=== PATIENT | male | born 1995 | race Caucasian/White ===

== ENCOUNTER 2024-12-01 09:22 | Emergency (ER) | payer OTHER, SELFPAY ==
--- OUTSIDE RECORDS SUMMARY | 2024-12-01 09:30 | XMS_ITS | Continuity of Care Document ---
Author Name [facility] Organization [facility] Care Team Providers Care Counselor Marriage And Family Name Role Phone [facility] Unavailable Unavailable Problems Combined list of problems from [facility] and [facility] facilities. It does not include entries that were removed or entered in error. Problem Status Onset Date Problem Type Date of Resolution Comments Source Nondisplaced fracture of base of fifth metacarpal bone, right hand Active Condition [facility] Hyperlipidemia Active Condition [facility] Hypertension Active Condition [facility] Liver enzymes level above reference range Active Condition [facility] Vitamin D deficiency Active Condition [facility] Hypermetropia, bilateral Active Condition [facility] Regular astigmatism, bilateral Active Condition [facility] Diagnosis: ICD-10-CM R74.8 Abnormal levels of other serum enzymes Active Diagnosis [facility] Rojas [facility] Diagnosis: ICD-10-CM Z71.89 Other specified counseling Active Diagnosis [facility] Diagnosis: ICD-10-CM Z71.3 Dietary counseling and surveillance Active Diagnosis [facility] Kellee [facility] Medications Combined list of outpatient medications from [facility] and [facility] facilities.Medications provided include 1) outpatient medications from the last 15 months, and 2) patient-reported medications. Medication Details Route Status Patient Instructions Prescription Expires Prescription Number Last Dispense Date Ordering Provider Order Date Order Qty Source atorvastati n (U/D) 10 MG ORAL TAB TAKE ONE-HALF TABLET BY MOUTH EVERY EVENING Active 01/23/2025 [id number] STANLEY GORDON 2023 45 [facility] n ATORVASTATI N CA 10MG TAB TAKE ONE-HALF TABLET BY MOUTH EVERY EVENING ORAL ACTIVE 01/23/2025 [id number] 4 HANY GORDON 2023 45 [facility] N cholecalcif (VIT D3) 2,000 UNIT ORAL TAB TAKE ONE TABLET BY MOUTH ONCE A DAY FOR VITAMIN D DEFICIEN CY 01/24/2024 [id number] 4 STANLEY GORODN B 2023 100 [facility] n CHOLECALCIF JEROME 50MCG (2,000UNIT) TAB TAKE ONE TABLET BY MOUTH ONCE A DAY FOR VITAMIN D DEFICIEN CY ORAL 01/24/2024 [id number] 4 HANY GORDON E B 2023 100 [facility] N Allergies, Adverse Reactions, Alerts Combined list of allergies from [facility] and [facility] facilities. It does not include entries that were removed or entered in error. Substance Category Reaction Severity Reaction type Status Date Reported Comments Source No Known Allergies Drug allergy (disorder) active 08/07/2019 [facility] [place] Immunizations Combined list of available immunizations from the Department of Defense and Veterans Affairs facilities. Immunization Series Date Given Administered By Site Reaction Lot Number CVX Code Drug Tare Weigher Status Comments Source HPV9 1 2023 LATOYA VILLATORO RIGHT DELTO ID [id number] 165 complet [facility] N TDAP 2023 LATOYA VILLATORO LEFT DELTO ID [id number] 115 complet [facility] N influenza, injectable, quadrivalent, contains preservative 1 2020 [id number] 158 (IDB) complet influenza , injectabl e, quadrival ent, contains preservat hailey [facility] influenza, injectable, quadrivalent, contains preservative 1 2020 [id number] 158 (IDB) complet influenza , injectabl e, quadrival ent, contains preservat hailey [facility] Gambian Encephalitis vaccine for intramuscular administratio n 2 2020 [id number] 134 Unknown (UNK) complet ed [place] Encephali tis vaccine for intramusc ular administr ation DoD SARS-COV-2 (COVID-19) vaccine, mRNA, spike protein, LNP, preservative free, 30 mcg/0.3mL dose 2 2020 [id number] Flypad, Inc (PFR) complet SARS-COV- 2 (COVID-19 ) vaccine, mRNA, spike protein, LNP, preservat hailey free, 30 mcg/0.3mL dose DoD SARS-COV-2 (COVID-19) vaccine, mRNA, spike protein, LNP, preservative free, 30 mcg/0.3mL dose 2 2020 SHERRON MILLER [id number] Pfizer, OANDA (PFR) complet ed SARS-COV- 2 (COVID-19 ) vaccine, mRNA, spike protein, LNP, preservat hailey free, 30 mcg/0.3mL dose DoD measles, mumps and rubella virus vaccine 2 2020 LUAN DIAZ [id number] Merck (MSD) complet ed measles, mumps and rubella virus vaccine DoD anthrax vaccine 2 2020 LUAN DIAZ [id number] SmithKline (SKB) complet ed anthrax vaccine DoD Gambian Encephalitis vaccine for intramuscular administratio n 1 2020 LUAN DIAZ [id number] 134 Valneva (GRACIE) complet ed [place] Encephali tis vaccine for intramusc ular administr ation DoD SARS-COV-2 (COVID-19) vaccine, mRNA, spike protein, LNP, preservative free, 30 mcg/0.3mL dose 1 2020 SHERRON MILLER [id number] 208 Pfizer, OANDA (PFR) complet ed SARS-COV- 2 (COVID-19 ) vaccine, mRNA, spike protein, LNP, preservat hailey free, 30 mcg/0.3mL dose DoD typhoid Vi capsular polysaccharid e vac 2019 [id number] sanofi pasteur complet ed typhoid Vi capsular polysacch aride vac 11/07/19 Given Ambulat ory Pharmac y vaccinia (smallpox) vaccine 2019 [id number] 75 Sanofi Pasteur Incorporated complet ed vaccinia (smallpox ) vaccine 11/07/19 Given Ambulat ory Pharmac y anthrax vaccine 2019 [id number] Emergent Biosolutions complet ed anthrax vaccine 11/07/19 Given Ambulat ory Pharmac y typhoid Vi capsular polysaccharid e vac 2019 [id number] 101 sanofi pasteur complet ed typhoid Vi capsular polysacch aride vac 11/07/19 Given Ambulat ory Pharmac y anthrax vaccine 2019 [id number] Emergent [employer]olutions complet ed anthrax vaccine 11/07/19 Given Ambulat ory Pharmac y vaccinia (smallpox) vaccine 2019 [id number] 75 Sanofi Pasteur Incorporated complet ed vaccinia (smallpox ) vaccine 11/07/19 Given Ambulat ory Pharmac y anthrax vaccine 1 2019 [id number] 24 Emergent [employer] Adel (MIP) complet ed anthrax vaccine DoD vaccinia (smallpox) vaccine 1 2019 [id number] (NICOLETTE) complet ed vaccinia (smallpox ) vaccine DoD typhoid Vi capsular polysaccharid e vaccine 1 2019 [id number] 101 Sanofi Pasteur (PMC) complet ed typhoid Vi capsular polysacch aride vaccine DoD influenza, injectable, quadrivalent 2018 [id number] 158 Seqirus complet ed influenza , injectabl e, quadrival ent 10/09/19 Given Ambulat ory Pharmac y influenza, injectable, quadrivalent 2018 [id number] 158 Seqirus complet ed influenza , injectabl e, quadrival ent 10/09/19 Given Ambulat ory Pharmac y influenza, injectable, quadrivalent, contains preservative 1 2018 [id number] 509 158 Seqirus (SEQ) complet ed influenza , injectabl e, quadrival ent, contains preservat hailey DoD hepatitis A adult vaccine 2018 [id number] 52 GlaxoSmithKli ne complet ed hepatitis A adult vaccine 08/07/19 Given Ambulat ory Pharmac y hepatitis A adult vaccine 2018 Thomas ashraf Arm [id number] 52 GlaxoSmithKli ne complet ed hepatitis A adult vaccine 08/07/19 Given Ambulat ory Pharmac y hepatitis A vaccine, adult dosage 2 2018 COLTON SILVERIO [id number] 52 SmithKline (SKB) complet ed hepatitis A vaccine, adult dosage DoD varicella virus vaccine 2018 [id number] 21 Merck & Company Inc complet ed varicella virus vaccine 02/26/19 Given Ambulat ory Pharmac y varicella virus vaccine 2018 [id number] 21 Merck & Company Inc complet ed varicella virus vaccine 02/26/19 Given Ambulat ory Pharmac y varicella virus vaccine 2 2018 [id number] 21 Merck (MSD) complet ed varicella virus vaccine DoD poliovirus vaccine, inactivated 2018 [id number] sanofi pasteur complet ed polioviru s vaccine, inactivat ed 01/10/19 Given Ambulat ory Pharmac y influenza, injectable, quadrivalent 2018 [id number] 158 Seqirus complet ed influenza , injectabl e, quadrival ent 01/10/19 Given Ambulat ory Pharmac y adenovirus vaccine, live 2018 [id number] 143 Teva Pharmaceutica ls complet ed adenoviru s vaccine, live 01/10/19 Given Ambulat ory Pharmac y tetanus, diphtheria, acellular pertu is 2018 [id number] 115 GlaxoSmithKli ne complet ed tetanus, diphtheri a, acellular pertussis 01/10/19 Given Ambulat ory Pharmac y meningococcal A,C,Y,W-135 (MCV4P) 2018 [id number] 114 sanofi pasteur complet ed meningoco ccal A,C,Y,W-1 35 (MCV4P) 01/10/19 Given Ambulat ory Pharmac y hepatitis A adult vaccine 2018 [id number] 52 GlaxoSmithKli ne complet ed hepatitis A adult vaccine 01/10/19 Given Ambulat ory Pharmac y varicella virus vaccine 2018 [id number] 21 Merck & Company Inc complet ed varicella virus vaccine 01/10/19 Given Ambulat ory Pharmac y influenza, injectable, quadrivalent 2018 [id number] 158 Seqirus complet ed influenza , injectabl e, quadrival ent 01/10/19 Given Ambulat ory Pharmac y adenovirus vaccine, live 2018 [id number] 143 Teva Pharmaceutica ls complet ed adenoviru s vaccine, live 01/10/19 Given Ambulat ory Pharmac y hepatitis A adult vaccine 2018 [id number] 52 GlaxoSmithKli ne complet ed hepatitis A adult vaccine 01/10/19 Given Ambulat ory Pharmac y varicella virus vaccine 2018 [id number] 21 Merck & Company Inc complet ed varicella virus vaccine 01/10/19 Given Ambulat ory Pharmac y poliovirus vaccine, inactivated 2018 [id number] 10 sanofi pasteur complet ed polioviru s vaccine, inactivat ed 01/10/19 Given Ambulat ory Pharmac y tetanus, diphtheria, acellular pertu is 2018 [id number] 115 [employer] complet ed tetanus, diphtheri a, acellular pertussis 01/10/19 Given Ambulat ory Pharmac y meningococcal A,C,Y,W-135 (MCV4P) 2018 [id number] 114 sanofi pasteur complet ed meningoco ccal A,C,Y,W-1 35 (MCV4P) 01/10/19 Given Ambulat ory Pharmac y measles, mumps and rubella virus vaccine 1 2018 UNK 03 Unknown (UNK) Not Given measles, mumps and rubella virus vaccine DoD poliovirus vaccine, inactivated 1 2018 [id number] 10 Sanofi Pasteur (PMC) complet ed polioviru s vaccine, inactivat ed DoD varicella virus vaccine 1 2018 [id number] 21 Merck (MSD) complet ed varicella virus vaccine DoD hepatitis B vaccine, adult dosage 1 2018 UNK 43 Unknown (UNK) Not Given hepatitis B vaccine, adult dosage DoD hepatitis A vaccine, adult dosage 1 2018 [id number] 52 [employer] Processing[employer] (SKB) complet ed hepatitis A vaccine, adult dosage DoD meningococcal polysaccharid e (groups A, C, Y and W-135) diphtheria toxoid conjugate vaccine (MCV4P) 1 2018 [id number] 114 Sanofi Pasteur (PMC) complet ed meningoco ccal polysacch aride (groups A, C, Y and W-135) diphtheri a toxoid conjugate vaccine (MCV4P) DoD tetanus toxoid, reduced diphtheria toxoid, and acellular pertu is vaccine, adsorbed 1 2018 [id number] 115 [employer]s (SKB) complet ed tetanus toxoid, reduced diphtheri a toxoid, and acellular pertussis vaccine, adsorbed DoD Adenovirus, type 4 and type 7, live, oral 1 2018 [id number] 143 Evri (BRR) complet ed Adenoviru s, type 4 and type 7, live, oral DoD influenza, injectable, quadrivalent, contains preservative 1 2018 [id number] 158 Seqirus (SEQ) comple t ed influenza , injectabl e, quadrival ent, contains preservat hailey DoD Results Combined list of recent chemistry, hematology and other laboratory results from Department of Defense and Veterans Affairs, ranging from 15 months to all on record, depending upon the facility. Order Name Results Value Reference Range Date Interpretation Specimen Comments Source HIV COMBO FOURTH GENERATIO N (STL) HIV 1+2 AB+HIV1 P24 AG [PRESENCE] IN SERUM OR PLASMA BY IMMUNOASSA Y Nonreact hailey 10/24 Specimen Type: SERUM No comment entered. Ordering Provider: STANLEY GORDON Report Released Date/Time: Oct 24, 2023 09:44 AM Reporting Lab: [facility] [address] [place] [phone] Performing Lab: [facility] [address] [place] [phone] [facility] HEP C Ab HCV Ab ([facility]) HEPATITIS C VIRUS AB [PRESENCE] IN SERUM Nonreact hailey 10/24 Specimen Type: SERUM No comment entered. Ordering Provider: STANLEY GORDON Report Released Date/Time: Oct 24, 2023 09:44 AM Reporting Lab: [facility] [id number] Performing Lab: [facility] [address] [place] [phone] [facility] COMPREHEN SIVLibby METABOLIC PANEL CREATININE [MASS/VOLU ME] IN SERUM OR PLASMA 0.98 mg/dL 0.70 - 1.30 10/24 Specimen Type: PLASMA Comment: No hemolysis noted. Ordering Provider: STANLEY GORDON Report Released Date/Time: Oct 24, 2023 09:44 AM Reporting Lab: [facility]1 [facility] [id number] Performing Lab: [facility]1 [facility] [id number] [place] [address] DIVISION COMPREHEN SIVLibby METABOLIC PANEL UREA NITROGEN [MASS/VOLU ME] IN SERUM OR PLASMA 17.9 mg/dL 9.0 - 25.0 10/24 Specimen Type: PLASMA Comment: No hemolysis noted. Ordering Provider: STANLEY GORDON Report Released Date/Time: Oct 24, 2023 09:44 AM Reporting Lab: [facility] [place] [address] Performing Lab: [facility] DIVISION COMPREHEN SIVE METABOLIC PANEL GLUCOSE [MASS/VOLU ME] IN SERUM OR PLASMA 84 mg/dL 72 - 99 10/24 Specimen Type: PLASMA Comment: No hemolysis noted. Ordering Provider: STANLEY GORDON Report Released Date/Time: Oct 24, 2023 09:44 AM Reporting Lab: [facility] [place] [address] Performing Lab: [facility] DIVISION COMPREHEN SIVE METABOLIC PANEL SODIUM [MOLES/VOL UME] IN SERUM OR PLASMA 139 meq/L 136 - 145 10/24 Specimen Type: PLASMA Comment: No hemolysis noted. Ordering Provider: STANLEY GORDON Report Released Date/Time: Oct 24, 2023 09:44 AM Reporting Lab: [facility] [place] [address] Performing Lab: [facility] DIVISION COMPREHEN SIVE METABOLIC PANEL POTASSIUM [MOLES/VOL UME] IN SERUM OR PLASMA 4.4 meq/L 3.5 - 5.0 10/24 Specimen Type: PLASMA Comment: No hemolysis noted. Ordering Provider: STANLEY GORDON Report Released Date/Time: Oct 24, 2023 09:44 AM Reporting Lab: [facility] [place] [address] Performing Lab: [facility] DIVISION COMPREHEN SIVE METABOLIC PANEL CHLORIDE [MOLES/VOL UME] IN SERUM OR PLASMA 107 meq/L 98 - 107 10/24 Specimen Type: PLASMA Comment: No hemolysis noted. Ordering Provider: STANLEY GORDON Report Released Date/Time: Oct 24, 2023 09:44 AM Reporting Lab: [facility] [place] [address] Performing Lab: [facility] DIVISION COMPREHEN SIVE METABOLIC PANEL CARBON DIOXIDE, TOTAL [MOLES/VOL UME] IN SERUM OR PLASMA 22 meq/L 22 - 31 10/24 Specimen Type: PLASMA Comment: No hemolysis noted. Ordering Provider: STANLEY GORDON Report Released Date/Time: Oct 24, 2023 09:44 AM Reporting Lab: [facility] [place] [address] Performing Lab: [facility] DIVISION COMPREHEN SIVE METABOLIC PANEL CALCIUM [MASS/VOLU ME] IN SERUM OR PLASMA 9.3 mg/dL 8.4 - 10.4 10/24 Specimen Type: PLASMA Comment: No hemolysis noted. Ordering Provider: STANLEY GORDON Report Released Date/Time: Oct 24, 2023 09:44 AM Reporting Lab: [facility] [place] [address] Performing Lab: [facility] DIVISION COMPREHEN SIVE METABOLIC PANEL PROTEIN [MASS/VOLU ME] IN SERUM OR PLASMA 7.8 g/dL 6.0 - 8.6 10/24 Specimen Type: PLASMA Comment: No hemolysis noted. Ordering Provider: STANLEY GORDON Report Released Date/Time: Oct 24, 2023 09:44 AM Reporting Lab: [facility] [place] [address] Performing Lab: [facility] [place] [facility] DIV[facility] COMPREHEN SIVE METABOLIC PANEL ALBUMIN [MASS/VOLU ME] IN SERUM OR PLASMA 4.5 g/dL 3.4 - 5.0 10/24 Specimen Type: PLASMA Comment: No hemolysis noted. Ordering Provider: STANLEY GORDON Report Released Date/Time: Oct 24, 2023 09:44 AM Reporting Lab: [facility] [place] [address] Performing Lab: [facility] DIVISION COMPREHEN SIVE METABOLIC PANEL BILIRUBIN. TOTAL [MASS/VOLU ME] IN SERUM OR PLASMA 0.5 mg/dL 0.2 - 1.2 10/24 Specimen Type: PLASMA Comment: No hemolysis noted. Ordering Provider: STANLEY GORDON Report Released Date/Time: Oct 24, 2023 09:44 AM Reporting Lab: [facility] [place] [address] Performing Lab: [facility] DIVISION COMPREHEN SIVE METABOLIC PANEL ALKALINE PHOSPHATAS E [ENZYMATIC ACTIVITY/V OLUME] IN SERUM OR PLASMA 59 U/L 40 - 150 10/24 Specimen Type: PLASMA Comment: No hemolysis noted. Ordering Provider: STANLEY GORDON Report Released Date/Time: Oct 24, 2023 09:44 AM Reporting Lab: [facility] [place] [address] Performing Lab: [facility] DIVISION COMPREHEN SIVE METABOLIC PANEL ASPARTATE AMINOTRANS FERASE [ENZYMATIC ACTIVITY/V OLUME] IN SERUM OR PLASMA 35 U/L 5 - 34 10/24 H Specimen Type: PLASMA Comment: No hemolysis noted. Ordering Provider: STANLEY GORDON Report Released Date/Time: Oct 24, 2023 09:44 AM Reporting Lab: [facility] [place] [address] Performing Lab: [facility] DIVISION COMPREHEN SIVE METABOLIC PANEL ALANINE AMINOTRANS FERASE [ENZYMATIC ACTIVITY/V OLUME] IN SERUM OR PLASMA 68 U/L 8 - 40 10/24 H Specimen Type: PLASMA Comment: No hemolysis noted. Ordering Provider: STANLEY GORDON Report Released Date/Time: Oct 24, 2023 09:44 AM Reporting Lab: [facility] [place] [address] Performing Lab: [facility] DIVISION COMPREHEN SIVE METABOLIC PANEL GLOMERULAR FILTRATION RATE/1.73 SQ M.PREDICTE D [VOLUME RATE/AREA] IN SERUM, PLASMA OR BLOOD BY CREATININE -BASED FORMULA (CKD-EPI 2020) 109.06 60 10/24 Specimen Type: PLASMA Comment: No hemolysis noted. Ordering Provider: STANLEY GORDON Report Released Date/Time: Oct 24, 2023 09:44 AM Reporting Lab: [facility] [place] [address] Performing Lab: [facility] DIVISION CBC LEUKOCYTES [#/VOLUME] IN BLOOD BY AUTOMATED COUNT 6.8 10*3/uL 3.6 - 11.2 10/24 Specimen Type: BLOOD No comment entered. Ordering Provider: STANLEY GORDON Report Released Date/Time: Oct 24, 2023 09:44 AM Reporting Lab: [facility] [place] [address] Performing Lab: [facility] DIVISION CBC ERYTHROCYT ES [#/VOLUME] IN BLOOD BY AUTOMATED COUNT 5.28 10*6/uL 4.10 - 5.70 01/02 /2024 Specimen Type: BLOOD No comment entered. Ordering Provider: STANLEY GORDON Report Released Date/Time: Oct 24, 2023 09:44 AM Reporting Lab: [facility] [place] [address] Performing Lab: [facility] CBC HEMOGLOBIN [MASS/VOLU ME] IN BLOOD 16.3 g/dL 13.1 - 16.8 10/24 Specimen Type: BLOOD No comment entered. Ordering Provider: STANLEY GORDON Report Released Date/Time: Oct 24, 2023 09:44 AM Reporting Lab: [facility] [place] [address] Performing Lab: [facility] CBC HEMATOCRIT [VOLUME FRACTION] OF BLOOD 46.0 38.2 - 48.4 10/24 Specimen Type: BLOOD No comment entered. Ordering Provider: STANLEY GORDON Report Released Date/Time: Oct 24, 2023 09:44 AM Reporting Lab: [facility] [place] [address] Performing Lab: [facility] DIVISION CBC MCV [ENTITIC VOLUME] BY AUTOMATED COUNT 87.1 fL 80.0 - 100.0 10/24 Specimen Type: BLOOD No comment entered. Ordering Provider: STANLEY GORDON Report Released Date/Time: Oct 24, 2023 09:44 AM Reporting Lab: [facility] [place] [address] Performing Lab: [facility] DIVISION CBC MCH [ENTITIC MASS] BY AUTOMATED COUNT 30.9 pg 27.0 - 34.0 10/24 Specimen Type: BLOOD No comment entered. Ordering Provider: STANLEY GORDON Report Released Date/Time: Oct 24, 2023 09:44 AM Reporting Lab: [facility] [place] [address] Performing Lab: [facility] DIVISION CBC MCHC [MASS/VOLU ME] BY AUTOMATED COUNT 35.4 g/dL 33.0 - 36.0 10/24 Specimen Type: BLOOD No comment entered. Ordering Provider: STANLEY GORDON Report Released Date/Time: Oct 24, 2023 09:44 AM Reporting Lab: [facility] [place] [address] Performing Lab: [facility] DIVISION CBC PLATELETS [#/VOLUME] IN BLOOD BY AUTOMATED COUNT 238 10*3/uL 150 - 400 10/24 Specimen Type: BLOOD No comment entered. Ordering Provider: STANLEY GORDON Report Released Date/Time: Oct 24, 2023 09:44 AM Reporting Lab: [facility] [place] [address] Performing Lab: [facility] DIVISION CBC PLATELET MEAN VOLUME [ENTITIC VOLUME] IN BLOOD BY AUTOMATED COUNT 9.8 fL 7.5 - 11.2 10/24 Specimen Type: BLOOD No comment entered. Ordering Provider: STANLEY GORDON Report Released Date/Time: Oct 24, 2023 09:44 AM Reporting Lab: [facility] [place] [address] Performing Lab: [facility] DIVISION CBC ERYTHROCYT E DISTRIBUTI ON WIDTH [RATIO] BY AUTOMATED COUNT 12.6 11.8 - 15.1 10/24 Specimen Type: BLOOD No comment entered. Ordering Provider: STANLEY GORDON Report Released Date/Time: Oct 24, 2023 09:44 AM Reporting Lab: [facility] [place] [address] Performing Lab: [facility] DIVISION CBC LYMPHOCYTE S/100 LEUKOCYTES IN BLOOD BY AUTOMATED COUNT 25 10/24 Specimen Type: BLOOD No comment entered. Ordering Provider: STANLEY GORDON Report Released Date/Time: Oct 24, 2023 09:44 AM Reporting Lab: [facility] [place] [address] Performing Lab: [facility] DIVISION CBC MONOCYTES/ 100 LEUKOCYTES IN BLOOD BY AUTOMATED COUNT 6 10/24 Specimen Type: BLOOD No comment entered. Ordering Provider: STANLEY GORDON Report Released Date/Time: Oct 24, 2023 09:44 AM Reporting Lab: [facility] [place] [address] Performing Lab: [facility]1 [facility] [id number] [place] [address] DIVISION CBC NEUTROPHIL S/100 LEUKOCYTES IN BLOOD BY AUTOMATED COUNT 63 10/24 Specimen Type: BLOOD No comment entered. Ordering Provider: STANLEY GORDON Report Released Date/Time: Oct 24, 2023 09:44 AM Reporting Lab: [facility] [place] [address] Performing Lab: [facility] DIVISION CBC EOSINOPHIL S/100 LEUKOCYTES IN BLOOD BY AUTOMATED COUNT 5 10/24 Specimen Type: BLOOD No comment entered. Ordering Provider: STANLEY GORDON Report Released Date/Time: Oct 24, 2023 09:44 AM Reporting Lab: [facility] [place] [address] Performing Lab: [facility] DIVISION CBC BASOPHILS/ 100 LEUKOCYTES IN BLOOD BY AUTOMATED COUNT 1 10/24 Specimen Type: BLOOD No comment entered. Ordering Provider: STANLEY GORDON Report Released Date/Time: Oct 24, 2023 09:44 AM Reporting Lab: [facility] [place] [address] Performing Lab: [facility] DIVISION CBC LYMPHOCYTE S [#/VOLUME] IN BLOOD BY AUTOMATED COUNT 1.70 10*3/uL 0.77 - 4.50 10/24 Specimen Type: BLOOD No comment entered. Ordering Provider: STANLEY GORDON Report Released Date/Time: Oct 24, 2023 09:44 AM Reporting Lab: [facility] [place] [address] Performing Lab: [facility] DIVISION CBC MONOCYTES [#/VOLUME] IN BLOOD BY AUTOMATED COUNT 0.42 10*3/uL 0.19 - 0.80 10/24 Specimen Type: BLOOD No comment entered. Ordering Provider: STANLEY GORDON Report Released Date/Time: Oct 24, 2023 09:44 AM Reporting Lab: [facility] [place] [address] Performing Lab: [facility] DIVISION CBC NEUTROPHIL S [#/VOLUME] IN BLOOD BY AUTOMATED COUNT 4.28 10*3/uL 2.10 - 8.00 10/24 Specimen Type: BLOOD No comment entered. Ordering Provider: STANLEY GORDON Report Released Date/Time: Oct 24, 2023 09:44 AM Reporting Lab: [facility] [place] [address] Performing Lab: [facility] CBC EOSINOPHIL S [#/VOLUME] IN BLOOD BY AUTOMATED COUNT 0.34 10*3/uL 0.00 - 0.60 10/24 Specimen Type: BLOOD No comment entered. Ordering Provider: STANLEY GORDON Report Released Date/Time: Oct 24, 2023 09:44 AM Reporting Lab: [facility] [place] [address] Performing Lab: [facility] DIVISION CBC BASOPHILS [#/VOLUME] IN BLOOD BY AUTOMATED COUNT 0.07 10*3/uL 0.00 - 0.20 10/24 Specimen Type: BLOOD No comment entered. Ordering Provider: STANLEY GORDON Report Released Date/Time: Oct 24, 2023 09:44 AM Reporting Lab: [facility] [place] [address] Performing Lab: [facility] LIPID PANEL (STL) CHOLESTERO L [MASS/VOLU ME] IN SERUM OR PLASMA 255 mg/dL 0 - 200 10/24 H Specimen Type: PLASMA Comment: No hemolysis noted. Ordering Provider: STANLEY GORDON Report Released Date/Time: Oct 24, 2023 09:44 AM Reporting Lab: [facility] [place] [address] Performing Lab: [facility] DIVISION LIPID PANEL (STL) TRIGLYCERI DE [MASS/VOLU ME] IN SERUM OR PLASMA 146 mg/dL 0 - 150 10/24 Specimen Type: PLASMA Comment: No hemolysis noted. Ordering Provider: STANLEY GORDON Report Released Date/Time: Oct 24, 2023 09:44 AM Reporting Lab: [facility] [place] [address] Performing Lab: [facility] LIPID PANEL (STL) CHOLESTERO L IN LDL [MASS/VOLU ME] IN SERUM OR PLASMA BY CALCULATIO N 171 mg/dL 10/24 Specimen Type: PLASMA Comment: No hemolysis noted. Ordering Provider: STANLEY GORDON Report Released Date/Time: Oct 24, 2023 09:44 AM Reporting Lab: [facility] [place] [address] Performing Lab: [facility] LIPID PANEL (STL) CHOLESTERO L IN HDL [MASS/VOLU ME] IN SERUM OR PLASMA 55 mg/dL 40 10/24 Specimen Type: PLASMA Comment: No hemolysis noted. Ordering Provider: STANLEY GORDON Report Released Date/Time: Oct 24, 2023 09:44 AM Reporting Lab: [facility] [place] [address] Performing Lab: [facility] DIVISION HGA1C HEMOGLOBIN A1C/HEMOGL OBIN.TOTAL IN BLOOD 5.4 4.0 - 6.0 10/24 Specimen Type: BLOOD No comment entered. Ordering Provider: STANLEY GORDON Report Released Date/Time: Oct 24, 2023 09:44 AM Reporting Lab: [facility] [place] [address] Performing Lab: [facility] DIVISION VITAMIN D, 25-HYDROX Y 25-HYDROXY VITAMIN D3 [MASS/VOLU ME] IN SERUM OR PLASMA 19.4 ng/mL 30 - 96 10/24 L Specimen Type: SERUM No comment entered. Ordering Provider: STANLEY GORDON Report Released Date/Time: Oct 24, 2023 09:46 AM Reporting Lab: [facility]1 [facility] [address] Performing Lab: [facility] [address] [facility] [place] Vital Signs Combined list of inpatient and outpatient Vital Signs from Department of Defense and Veterans Affairs, ranging from 12 months to all on record, depending upon the facility. Vital Sign Value Date Comments Source Systolic Blood Pressure 123 mm[Hg] 04/26/20 22 16:06:[address] [place] [address] Antonio Oconnell Diastolic Blood Pressure 84 mm[Hg] 022 16:06:[address] [place] [address] Antonio Oconnell Mean Arterial Pressure, Calc 97 mm[Hg] 04/26/2022 16:06:[address] [place] [address] Antonio Oconnell Peripheral Pulse Rate 80 bpm 04/26/2022 16:06:[address] [place] [address] Antonio Oconnell Respiratory Rate 14 br/min 04/26/2022 16:06:[address] [place] [address] Antonio Oconnell Temperature Temporal Artery 36.7 Lizzy 04/26/2022 16:06:[address] [place] [address] Antonio Oconnell BP Site Left arm 04/26/2022 16:06:[address] [place] [address] Antonio Oconnell Blood Pressure Manual Automatic 04/26/2022 16:06:[address] [place] [address] Antonio Oconnell SYSTOLIC BLOOD PRESSURE 121 01/23/20 24 10:17:[address] [facility] DIASTOLIC BLOOD PRESSURE 70 024 10:17:[address] [facility] PULSE OXIMETRY 96 01/23/2024 10:17:[address] [facility] WEIGHT 217.7 01/23/2024 10:17:[address] [facility] BMI 31 kg/m2 01/23/2024 10:17:34 [facility] PAIN 0 01/23/2024 10:17:[address] [facility] TEMPERATURE 98.3 01/23/2024 10:17:[address] [facility] PULSE 86 01/23/2024 10:17:34 [facility] RESPIRATION 18 01/23/2024 10:17:[address] [facility] Encounters Combined list of: 1) Encounters from Department of [facility] facilities going backup to the last 18 months, not all [place] inpatient encounters are included; 2) Encounters from the Department of [facility] facilities going backup to 280 months. Location Location Details Encounter Type Encounter Number Reason For Visit Attending Provider ADM Date DC Date Status Disposition Source [place] OUTPATIENT [id number] Notes Entered by: SACHIN JACOBO 08 Jan 2019 0715 ------- ------- ------- ------- -- Optomet ry Hei ARMIDA Solorio V 01/08 Released w/o Limitations [place] OUTPATIENT [id number] Notes Entered by: MARIA G AMAYA 08 Jan 2019 0759 ------- ------- ------- ------- -- [id number] DAY 1 039 ANNABELLE HEARD 01/08 Released w/o Limitations [place] OUTPATIENT [id number] Notes Entered by: Anjali SCHRADER 09 Jan 2019 1208 ------- ------- ------- ------- -- 039 CALLY SCHRADER 01/09 Released w/o Limitations [place] OUTPATIENT [id number] Notes Entered by: MARIA G AMAYA 10 Jan 2019 0517 ------- ------- ------- ------- -- [id number] DAY 3 039 KEISHA MAYO 01/10 Released w/o Limitations [place] OUTPATIENT [id number] Notes Entered by: CHIQUITA MELÉNDEZ 26 Feb 2019 0652 ------- ------- ------- ------- -- C CO 3-10 HERLINDA MONACO 02/26 Released w/o Limitations [place] [facility] [place]([facility] [place]) OUTPATIENT [id number] Notes Entered by: Ryan PRICE 07 Aug 2019 1012 ------- ------- ------- ------- -- INPROCE SSING/I MADHURI LAINEZ 08/07 Released w/o Limitations [facility] [place]([facility] [place]) [facility] [place] OUTPATIENT [id number] Notes Entered by: CLIF VELA 05 Nov 2019 1358 ------- ------- ------- ------- -- annual CLIF VELA JR 11/05 Released w/o Limitations [facility] [place]([facility] ) [facility] [place]([facility]) OUTPATIENT [id number] ree [id number] MARJAN WEINER 12/11 Released w/o Limitations [facility] [place]([facility]) [facility] [place]([facility]) OUTPATIENT [id number] LARA ORTIZ [phone] ANETTE PHAN 11/30 Released w/o Limitations [facility] [place]([facility] ) [facility] [place](Opto metry [facility]) OUTPATIENT [id number] REE [id number] DIDIERLEAERIN 01/08 Released w/o Limitations [facility] [place](Op tometry [facility]) [facility] [place](Epid emiology) TELE CONSULT [id number] Notes Entered by: IVONNE LANDERS 14 Jan 2021 1210 ------- ------- ------- ------- -- Close Contact to a positiv e COVID-1 9 Patient DANIEL SAAVEDRA 01/14 [facility] [place](Ep idemiol ogy) [facility] [place]) OUTPATIENT [id number] Notes Entered by: DEVENDRA HINDS 28 Jan 2021 1229 ------- ------- ------- ------- -- Covid Vaccine TERESA SÁNCHEZ 01/28 Released w/o Limitations [facility] [place]([facility]) [facility] [place]([facility]) OUTPATIENT [id number] Notes Entered by: Olaf HARMON 05 Apr 2021 0852 ------- ------- ------- ------- -- OK RAJPUT 04/05 Released w/o Limitations [facility] [place]([facility]) [facility] [place]([facility]) OUTPATIENT [id number] Notes Entered by: ZACH HOUSER 10 Apr 2021 1031 ------- ------- ------- ------- -- 2nd Covid Vaccine PACHALE SOLORZANO 04/10 Released w/o Limitations [facility] [place]([facility]) [facility] [place]( [facility]) TELE CONSULT [id number] Notes Entered by: OLIVER CASEY 08 Jun 2021 1441 ------- ------- ------- ------- -- RT wrist pain BONNIE SPRAGUE 06/08 [facility] -[facility]([place] [facility]) [facility] [place]( [facility]) TELE CONSULT [id number] Notes Entered by: OLIVER CASEY 10 Jun 2021 1907 ------- ------- ------- ------- -- BNONIE Grace 06/10 [facility]ANN [facility]RELL[facility] -[facility]([place] [facility]) [facility] [place]( Orthopedi c Clinic [facility]) OUTPATIENT [id number] Unspeci fied fractur e of right wrist and hand, subsequ ent encount er for fractur TANK DOS SANTOS 06/20 Released with Work/Duty Limitations [facility] -[facility](Ort hopedic Clinic [facility]) [facility]ANN ESTRELLAGOOD-[facility] [place]( Orthopedi c Clinic [facility]) OUTPATIENT [id number] follow up TANK DOS SANTOS 07/20 Released with Work/Duty Limitations [facility] -[facility](Ort hopedic Clinic [facility]) [facility]ANN [facility]LL[place]OD-[facility] [place]( Physical Therapy [facility]) TELE CONSULT [id number] Notes Entered by: LEANN PUTNAM 26 Jul 2021 1604 ------- ------- ------- ------- -- attempt ed to schedul e appoint met KRUPA MARSHALL 07/26 [facility]ANN CARTERON[facility]) [facility]AEANN ESTRELLAGOOD-[facility] [place]( [place] [address]) OUTPATIENT [id number] Notes Entered by: TAMMY SZYMANSKI 16 Aug 2021 1425 ------- ------- ------- ------- -- right hand TAMMY SZYMANSKI 08/16 Released w/o Limitations [facility] -[facility]([place] [address]) RAEANN ESTRELLAGOOD-[facility] [place]( [employer] [facility]) OUTPATIENT [id number] Notes Entered by: TAMMY SZYMANSKI 17 Aug 2021 1510 ------- ------- ------- ------- -- right hand TAMMY SZYMANSKI 08/17 Released w/o Limitations [facility] -[facility]([place] [facility]) [facility]ERT[facility]( [employer] [facility]) OUTPATIENT [id number] Notes Entered by: TAMMY SZYMANSKI 19 Aug 2021 1610 ------- ------- ------- ------- -- right hand TAMMY SZYMANSKI 08/19 Released w/o Limitations [facility] -[facility]([place] [facility]) [facility]OD[facility] [place]( [employer] [facility]) OUTPATIENT [id number] Notes Entered by: TAMMY SZYMANSKI 23 Aug 2021 1320 ------- ------- ------- ------- -- right hand TAMMY SZYMANSKI 08/23 Released w/o Limitations [facility] [facility]([place] [facility]) [facility] [place]( [employer] [facility]) OUTPATIENT [id number] Notes Entered by: TAMMY SZYMANSKI 09 Sep 2021 1648 ------- ------- ------- ------- -- right hand TAMMY SZYMANSKI 09/09 Released w/o Limitations [facility] [place] [facility]([place] [facility]) [facility] [place]( [employer] [facility]) OUTPATIENT [id number] Notes Entered by: TAMMY SZYMANSKI 14 Sep 2021 1552 ------- ------- ------- ------- -- right hand TAMMY SZYMANSKI 09/14 Released w/o Limitations [facility] [place] [facility]([place] [facility]) [facility] [place]( [employer] [facility]) OUTPATIENT [id number] Notes Entered by: TAMMY SZYMANSKI 20 Sep 2021 1105 ------- ------- ------- ------- -- Right hand TAMMY SZYMANSKI 09/20 Released w/o Limitations [facility] [place] [facility]([place] [facility]) [facility] [place]( [employer] [facility]) OUTPATIENT [id number] Notes Entered by: TAMMY SZYMANSKI 24 Sep 2021 0954 ------- ------- ------- ------- -- Right hand pain TAMMY SZYMANSKI 09/24 Released w/o Limitations [facility] [place] [facility]([place] [facility]) [facility]PATIENT [id number] Notes Entered by: TAMMY SZYMANSKI 05 Oct 2021 1524 ------- ------- ------- ------- -- right hand pain TAMMY SZYMANSKI 10/05 Released w/o Limitations [facility] [place] [facility]) [facility] [place]( [facility] OUTPATIENT [id number] Notes Entered by: TAMMY SZYMANSKI 07 Oct 2021 1430 ------- ------- ------- ------- -- Right hand pain TAMMY SZYMANSKI 10/07 Released w/o Limitations [facility] [place] [facility]) [facility] [place]( [facility] OUTPATIENT [id number] Notes Entered by: TAMMY SZYMANSKI 13 Oct 2021 0846 ------- ------- ------- ------- -- right hand pain TAMMY SZYMANSKI 10/12 Released w/o Limitations [facility] [place] [facility]) [facility] [place] [place]( [facility] OUTPATIENT [id number] Notes Entered by: TAMMY SZYMANSKI 14 Oct 2021 1421 ------- ------- ------- ------- -- Right hand pain TAMMY SZYMANSKI 10/14 Released w/o Limitations [facility] [place] [facility]) [facility] [place]( [facility] OUTPATIENT [id number] Notes Entered by: TAMMY SZYMANSKI 20 Oct 2021 1147 ------- ------- ------- ------- -- Right hand pain TAMMY SZYMANSKI 10/20 Released w/o Limitations [facility] [facility]) [facility]) OUTPATIENT [id number] Annual. 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 STANLEY Meza 10/24 [facility] HC PRO PHONE CALL 5-10 MIN [id number] Diagnos is: ICD-10- CM Z71.89 Other 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 Procedure Procedure Type Code Date Perfomer Comments Sourc e No data available for this section Ambulatory P harmacy No data is provided for this section because a [facility] internal system error occurred when retrieving data. A future request for this document may succe fully include data for this section if the system i ue has been resolved. [facility] Social History Combined list of available smoking, tobacco, and other social history from Department of Defense and Veterans Affairs facilities. Social History Type Response Date Comment Sourc e Tobacco smoking status NHIS VA-TOBACCO FORMER USER 10/24/2023 [facility] History of tobacco use VA-TOBACCO QUIT 5 TO < 15 YRS 10/24/2023 [facility] Male 07/19/2020 Ambulatory Pha rmacy Sexual Orientation Ambula tory Pharmacy Gender identity Ambulator y Pharmacy This section is an empty social history section. [facility] Assessment and Plan Combined list of future care activities from Department of Defense and Veterans Affairs facilities (e.g., assessment and plan notes, appointments, orders, and referrals). Additional future care activities may be listed in the Plan of Care section. Result Assessment and Plan Date Source Assessment and Plan Extracted from:Title : Office Clinic Note Author: LAQUITA VILLEGAS, Date: 04/26/22 Physical examination Patient has no complaints. Medical record reviewed and ETS physical completed, Patient has myopia corrected with lens, and mild pes planus ( asymptomatic). No disqualification condition found on exam. 12/01/[address] [place] [address] Antonio Oconnell Functional Status Combined list of recent functional and cognitive assessments recorded at Department of Defense and Veterans Affairs (VA).VA Functional Ragland Measurement (FIM) Scale: 1 = Total Assistance (Subject = 0% +), 2 = Maximal Assistance (Subject = 25% +), 3 = Moderate Assistance (Subject = 50% +), 4 = Minimal Assistance (Subject = 75% +), 5 = Supervision, 6 = Modified Ragland (Device), 7 = Complete Ragland (Timely, Safely). Assessment Date/Time Source Assessment Type Assessment Skill Assessment Score Assessment Details No data available for this section
[2024-12-01 09:52] VITALS: BP 126/82; PULSE 85; RESP 18; TEMP 36.1; O2SAT 100
--- NOTE | 2024-12-01 10:22 | ED.GENADULT ---
HPI - General Adult General Chief complaint: Upper Respiratory Infection Stated complaint: coughing and cold symptoms Time Seen by Provider: 12/01/24 10:22 Source: patient Mode of arrival: ambulatory Limitations: no limitations History of Present Illness HPI narrative: Drew is a 29-year-old male here with cough, congestion, fever, body aches, vomiting, and sore throat. He reports symptoms started Monday night. He denies sick contacts. He denies diarrhea. He has tried Tylenol and Dayquil with some symptom relief. He requests Tamiflu for flu if needed. All systems reviewed and negative except as noted above. Related Data Allergies Allergy/AdvReac Type Severity Reaction Status Date / Time No Known Allergies Allergy Verified 12/01/24 10:28 Review of Systems Review of Systems: CONSTITUTIONAL: Reports fever and chills. Denies sweats. EYES: Denies visual changes, redness, or discharge. ENT: Reports rhinorrhea, congestion, and sore throat. denies otalgia. CARDIOVASCULAR: Denies chest pain, palpitations, or edema. RESPIRATORY: Denies cough or dyspnea. GASTROINTESTINAL: Denies abdominal pain. Reports nausea and vomiting. Denies diarrhea. GENITOURINARY: Denies dysuria or hematuria. SKIN: Denies rash or itching. MUSCULOSKELETAL: Denies back pain, joint pain, or myalgia. Reports body ache NEUROLOGIC: Reports headache. Denies numbness, or weakness. PSYCHIATRIC: Denies anxiety or depression. All other systems reviewed are negative, except as documented in HPI. PMFSH Comments At time of signature, I have reviewed and agree with nursing past medical, surgical, social and family history unless otherwise noted. Please see nursing chart for further information. There is no relevant family history pertinent to the presenting complaint. Exam Narrative: GENERAL: This is a well-nourished, well-developed patient, in no apparent distress. He appears acutely ill. HEAD: normocephalic, atraumatic. EYES: Sclera clear/white. Vision is grossly intact. EARS: External ears normal, auditory canals clear and without drainage, TMs slightly erythematous without perforation. Hearing grossly intact. NOSE: External nose normal, nares with redness and rhinorrhea. THROAT: Mucous membranes moist, posterior pharynx erythematous with no exudate or enlarged tonsils noted. NECK: Neck supple, non-tender without lymphadenopathy. CARDIOVASCULAR: Regular rhythm without murmurs, gallops, or rubs. RESPIRATORY: Clear to auscultation. Breath sounds equal bilaterally. No wheezes, rales, or rhonchi. Coughing noted. GASTROINTESTINAL: Abdomen soft, non-tender, nondistended. No guarding. SKIN: warm, Dry, intact with no suspicious lesions or rash, good texture and turgor. NEURO: awake, alert, and oriented to person, place and time. There were no obvious focal neurologic abnormalities. EXTREMITIES: No joint tenderness, effusion, or edema noted. Course Course Emergency Course: Patient is aware of diagnosis, understands and agrees to treatment plan. Anticipatory guidance was given. Patient agrees to follow-up as directed and is aware of reasons to seek care at the emergency department. Please be advised this is a medical document. It is intended for [id number] communication. It is written in medical language and may contain unfamiliar abbreviations or verbiage. Medical documents are intended to carry relevant information, facts as evident, and the clinical opinion of the practitioner at the time of the encounter. This report may have been done utilizing a voice recognition system. Attempts have been made to correct errors. However, there may be uncorrected grammatical, spelling, and recognition errors present. The file time of this note does not necessarily represent the time the patient was seen. Level of Care: Express Care Visit Vital Signs Vital signs: Vital Signs Temperature 36.1 C L 12/01/24 09:52 Pulse Rate 85 12/01/24 09:52 Respiratory Rate 18 12/01/24 09:52 Blood Pressure 126/82 12/01/24 09:52 Pulse Oximetry 100 12/01/24 09:52 Oxygen Delivery Room Air 12/01/24 09:52 Temperature 36.1 C L 12/01/24 09:52 Pulse Rate 85 12/01/24 09:52 Respiratory Rate 18 12/01/24 09:52 Blood Pressure 126/82 12/01/24 09:52 Pulse Oximetry 100 12/01/24 09:52 Oxygen Delivery Room Air 12/01/24 09:52 reviewed. Medical Decision Making MDM Narrative Medical decision making narrative: Results of flu test reviewed with patient. Patient was positive for Flu A, and negative for Flu B and COVID. Discussed physical exam findings with patient and reviewed prescriptions. Patient requested Tamiflu, and this was sent to pharmacy to today. Advised supportive measures and reviewed signs and symptoms for patient to return to clinic or go to the ER. Patient verbalized understanding. Vital Signs Vital Signs: Vital Signs Temperature 36.1 C L 12/01/24 09:52 Pulse Rate 85 12/01/24 09:52 Respiratory Rate 18 12/01/24 09:52 Blood Pressure 126/82 12/01/24 09:52 Pulse Oximetry 100 12/01/24 09:52 Oxygen Delivery Room Air 12/01/24 09:52 Temperature 36.1 C L 12/01/24 09:52 Pulse Rate 85 12/01/24 09:52 Respiratory Rate 18 12/01/24 09:52 Blood Pressure 126/82 12/01/24 09:52 Pulse Oximetry 100 12/01/24 09:52 Oxygen Delivery Room Air 12/01/24 09:52 Lab Data Labs: Lab Results 12/01/24 Range/Units 10:00 POC Influenza A Ag Positive (Negative) POC Influenza B Ag Negative (Negative) POC SARS CoV-2 Ag Negative (Negative) reviewed. Discharge Plan Discharge Clinical Impression: Influenza A Patient Disposition: Home, Self-Care Condition: Stable Instructions: Antibiotic Form, Influenza (ED), Acute Nausea and Vomiting (ED), Acute Cough (ED) Additional Instructions: You were diagnosed today with influenza A. You should wear a mask when out of the house until your fever free for 24 hours. You should avoid going places revealed spread the infection to people for 5 days after your illness. Cover all coughs. Push fluids and eat foods that contain fluid such as applesauce. Rest. Use good handwashing techniques. You may use warm saltwater gargles for sore throat. You may use Tylenol and ibuprofen as needed as directed on packaging for pain. Take medications as prescribed. Follow printed instructions here. Call your Primary Care Doctor to make a follow-up appointment. 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
[2024-12-01 14:58] LABS: EDCOVIDSCREEN Negative (Negative); EDINFLUASCREEN Positive (Negative); EDINFLUBSCREEN Negative (Negative)
== END 2024-12-01 10:52 | disposition home or self-care (01) ==
PROVIDERS: Emergency Provider Nurse Practitioner; Referring Provider Family Medicine
DX: J10.1 Influenza due to other identified influenza virus with other respiratory manifestations (principal); Z20.822 Contact with and (suspected) exposure to COVID-19
CPT/HCPCS: 87426; 87804; 99213; G0463